=== PATIENT | male | born 1965 | race Caucasian/White ===

== ENCOUNTER → 2017-04-30 | Outpatient (CLI) | payer BC ==
[~2017-04-30] MED LIST: CEFU500T PO; TAMS-11 PO
== END | disposition home or self-care (01) ==
LOC: CFH 16:53
PROVIDERS: ATTEND Nurse Practitioner Family
DX: R06.00 Dyspnea, unspecified (principal); R05 Cough; Z87.891 Personal history of nicotine dependence
CPT/HCPCS: 71020

== ENCOUNTER → 2017-07-21 | Outpatient (CLI) | payer BC | END | disposition home or self-care (01) | LOC: CFH 15:47 | PROVIDERS: ATTEND Nurse Practitioner Family | DX: M79.631 Pain in right forearm (principal); Z98.890 Other specified postprocedural states ==

== ENCOUNTER → 2018-06-12 | Outpatient (CLI) | payer BC | END | disposition home or self-care (01) | LOC: CFH 14:53 | PROVIDERS: ATTEND Radiology Diagnostic Radiology | DX: R22.1 Localized swelling, mass and lump, neck (principal); M50.321 Other cervical disc degeneration at C4-C5 level; M50.322 Other cervical disc degeneration at C5-C6 level | CPT/HCPCS: 70360 ==

== ENCOUNTER 2020-05-03 01:52 | Inpatient (IN) | payer BC, OTHER ==
[~2020-05-03] VITALS: Ht 182.9 cm; Wt 103.0 kg
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
--- NOTE | 2020-05-03 01:55 | NUR ---
SECURITY AT BEDSIDE TO PUT PT IN 4 PT HARD RESTRAINTS
--- NOTE | 2020-05-03 02:00 | NUR ---
PT BELONGINGS (CELL PHONE AND GLASSES) PRESENT WITH PT UPON ARRIVAL, PLACED ON COUNTER
[2020-05-03] MEDS ORDERED: LORazepam 2 MG/ML, 1ML ONE ×3 (02:27→04:58)
[2020-05-03] MEDS ORDERED: LORazepam 2 MG/ML, 1ML IVPush ONE ×3 (02:30→05:00)
[2020-05-03] MEDS ORDERED: SODIUM CHLORIDE 0.9% 1,000ML IVBOLUS ONE ×2 (02:30→03:30)
--- NOTE | 2020-05-03 02:30 | NUR ---
PT STRAIGHT CATHED FOR URINE SAMPLE, PT MEDICATED PER MAR, PT IN FOUR POINT RESTRAINTS, NO INJURY NOTED, +ROM/CIRCULATION, NEEDS ATTENDED TO, WILL CONTINUE TO MONITOR
[2020-05-03 02:47] LABS: MEAN CORPUSCULAR HEMOGLOBIN 30.9 pg (27.5-34.5); MEAN CORPUSCULAR HGB CONC 33.8 g/dL (33.2-36.2); MEAN CORPUSCULAR VOLUME 91.3 fL (81-97); MEAN PLATELET VOLUME 7.8 fL (7.4-10.4); PLATELET COUNT 265 x10^3/uL (130-400); RED BLOOD COUNT 5.97 x10^6/uL (4.38-5.82); RED CELL DISTRIBUTION WIDTH 14.1 % (9.4-14.8)
[2020-05-03 02:57] LABS: ALANINE AMINOTRANSFERASE 49 U/L (12-78); ALBUMIN 4.1 g/dL (3.4-5.0); ANION GAP 16 mmol/L (5-15); CALCIUM 9.7 mg/dL (8.5-10.1); CHLORIDE 110 mmol/L (98-107); CREATININE 2.86 mg/dL (0.7-1.3)
[2020-05-03 03:00] LABS: ALKALINE PHOSPHATASE 93 U/L (45-117); BILIRUBIN,TOTAL 1.2 mg/dL (0.2-1.0); TOTAL PROTEIN 8.4 g/dL (6.4-8.2)
[2020-05-03] MEDS ORDERED: PLEASE ENTER ALLERGIES MC SCH (03:00)
[2020-05-03] MEDS ORDERED: ACETAMINOPHEN 325 MG TABLET PO ONE (03:00)
[2020-05-03 03:07] LABS: BASOPHILS # (AUTO) 0.01 x10^3/uL (0-0.1); BASOPHILS % (AUTO) 0 % (0-1); EOSINOPHILS # (AUTO) 0.07 x10^3/uL (0-0.4); EOSINOPHILS % (AUTO) 0 % (1-7); LYMPHOCYTES # (AUTO) 1.18 x10^3/uL (1-3.4); LYMPHOCYTES % (AUTO) 5 % (22-44); MD SCAN; MONOCYTES # (AUTO) 0.67 x10^3/uL (0.2-0.8); MONOCYTES % (AUTO) 3 % (2-9); NEUTROPHILS # (AUTO) 21.19 x10^3/uL (1.8-6.8); NEUTROPHILS % (AUTO) 92 % (42-75)
[2020-05-03 03:27] LABS: AMPHETAMINE SCREEN, URINE Positive (Negative); BARBITURATE SCREEN, URINE Negative (Negative); BENZODIAZEPINE SCREEN, URINE Negative (Negative); CANNABINOID SCREEN, URINE Negative (Negative); COCAINE SCREEN, URINE Positive (Negative); METHADONE SCREEN, URINE Negative (Negative); OPIATE SCREEN, URINE Negative (Negative)
[2020-05-03] MEDS ORDERED: CEFTRIAXONE PMX 1GM/50ML 50 ML ONE (04:12)
[2020-05-03] MEDS ORDERED: CEFTRIAXONE PMX 1GM/50ML 50 ML IV ONE (04:30)
[2020-05-03] MEDS ORDERED: SODIUM CHLORIDE 0.9% 1,000 ML IV SCH (04:35)
[2020-05-03 04:37] LABS: MICROSCOPIC INDICATED
--- NOTE | 2020-05-03 04:42 | NUR ---
PT AGITATION INCREASES AND PT YELLING OUT, ORDER FOR ATIVAN 1 MG IV
[2020-05-03] MEDS ORDERED: morphine SULFATE 10 MG/ML, 1ML IVPush PRN (05:00)
[2020-05-03] MEDS ORDERED: LORazepam 2 MG/ML, 1ML IVPush PRN ×2 (05:30→13:30)
--- NOTE | 2020-05-03 05:41 | NUR ---
PT CONTINUES TO FLAIL IN BED, CURRENTLY IN 4 POINT HARD RESTRAINTS, PT AGITATED, MOANING, AND ATTEMPTING TO GET OUT OF RESTRAINTS
--- NOTE | 2020-05-03 06:20 | NUR ---
PT BOTTOM DENTURES PLACED IN BAG WITH PATIENT LABEL
--- NOTE | 2020-05-03 06:28 | NUR ---
REPORT CALLED TO SARA WILLIAMSON TO ASSUME CARE UPON TRANSFER TO [facility]
--- NOTE | 2020-05-03 06:40 | NUR ---
SECURITY AND SITTER AT BEDSIDE TO ESCORT TRANSPORT TO UNIT AT THIS TIME
[2020-05-03 08:25] VITALS: BP 111/74
[2020-05-03] MEDS: SODIUM CHLORIDE 0.9% 1,000 ML IV SCH ×2 (08:30→16:30)
[2020-05-03] MEDS: SENNA/DOCUSATE TABLET PO SCH (08:37)
[2020-05-03 12:45] LABS: CHLORIDE,URINE RANDOM 73 mmol/L; POTASSIUM,URINE RANDOM 53 mmol/L; SODIUM,URINE RANDOM 75 mmol/L
[2020-05-03 14:18] VITALS: BP 115/74
[2020-05-03 15:17] LABS: ALANINE AMINOTRANSFERASE 163 U/L (12-78); ALBUMIN 3.2 g/dL (3.4-5.0); ANION GAP 8 mmol/L (5-15); CALCIUM 8.2 mg/dL (8.5-10.1); CHLORIDE 118 mmol/L (98-107); CREATININE 1.46 mg/dL (0.7-1.3)
[2020-05-03 15:19] LABS: BASOPHILS # (AUTO) 0.05 x10^3/uL (0-0.1); BASOPHILS % (AUTO) 0 % (0-1); EOSINOPHILS # (AUTO) 0.11 x10^3/uL (0-0.4); EOSINOPHILS % (AUTO) 1 % (1-7); LYMPHOCYTES # (AUTO) 1.79 x10^3/uL (1-3.4); LYMPHOCYTES % (AUTO) 12 % (22-44); MEAN CORPUSCULAR HEMOGLOBIN 30.9 pg (27.5-34.5); MEAN CORPUSCULAR HGB CONC 33.5 g/dL (33.2-36.2); MEAN CORPUSCULAR VOLUME 92.5 fL (81-97); MEAN PLATELET VOLUME 7.3 fL (7.4-10.4); MONOCYTES # (AUTO) 0.92 x10^3/uL (0.2-0.8); MONOCYTES % (AUTO) 6 % (2-9); NEUTROPHILS % (AUTO) 80 % (42-75); PLATELET COUNT 194 x10^3/uL (130-400); RED BLOOD COUNT 5.25 x10^6/uL (4.38-5.82)
[2020-05-03 15:20] LABS: MD NO
[2020-05-03 15:46] LABS: ALKALINE PHOSPHATASE 69 U/L (45-117); TOTAL PROTEIN 6.7 g/dL (6.4-8.2)
[2020-05-03 16:44] LABS: CREATINE KINASE, TOTAL 50620 U/L (39-308)
[2020-05-03] MEDS: SODIUM BICARBONATE 8.4% 150 MEQ in DEXTROSE 5% 1,000 ML IV SCH (18:30)
[2020-05-03] MEDS ORDERED: HALOPERIDOL 5 MG/ML IM PRN (18:30)
[2020-05-03] MEDS ORDERED: SODIUM ACETATE 150 MEQ in DEXTROSE 5% 1,000 ML IV SCH (18:30)
[2020-05-03] MEDS ORDERED: HALOPERIDOL 5 MG TABLET PO PRN (20:30)
[2020-05-03 21:33] VITALS: BP 73/59
[2020-05-04] MEDS: SODIUM BICARBONATE 8.4% 150 MEQ in DEXTROSE 5% 1,000 ML IV SCH ×3 (02:10→19:42)
[2020-05-04 03:06] VITALS: BP 99/57
[2020-05-04 05:16] LABS: ALBUMIN 2.8 g/dL (3.4-5.0); ANION GAP 5 mmol/L (5-15); CALCIUM 8.6 mg/dL (8.5-10.1); CHLORIDE 115 mmol/L (98-107)
[2020-05-04 05:29] LABS: BASOPHILS # (AUTO) 0.07 x10^3/uL (0-0.1); BASOPHILS % (AUTO) 1 % (0-1); EOSINOPHILS # (AUTO) 0.31 x10^3/uL (0-0.4); EOSINOPHILS % (AUTO) 3 % (1-7); LYMPHOCYTES # (AUTO) 2.29 x10^3/uL (1-3.4); LYMPHOCYTES % (AUTO) 20 % (22-44); MD NO; MEAN CORPUSCULAR HEMOGLOBIN 30.5 pg (27.5-34.5); MEAN CORPUSCULAR HGB CONC 32.8 g/dL (33.2-36.2); MEAN CORPUSCULAR VOLUME 92.9 fL (81-97); MEAN PLATELET VOLUME 7.4 fL (7.4-10.4); MONOCYTES # (AUTO) 0.47 x10^3/uL (0.2-0.8); MONOCYTES % (AUTO) 4 % (2-9); NEUTROPHILS # (AUTO) 8.11 x10^3/uL (1.8-6.8); NEUTROPHILS % (AUTO) 72 % (42-75); PLATELET COUNT 185 x10^3/uL (130-400); RED BLOOD COUNT 4.85 x10^6/uL (4.38-5.82)
[2020-05-04 05:43] LABS: ALANINE AMINOTRANSFERASE 279 U/L (12-78); ALKALINE PHOSPHATASE 64 U/L (45-117); BILIRUBIN,TOTAL 0.8 mg/dL (0.2-1.0); CREATININE 1.21 mg/dL (0.7-1.3); TOTAL PROTEIN 5.9 g/dL (6.4-8.2)
[2020-05-04 06:13] LABS: CREATINE KINASE, TOTAL 54168 U/L (39-308)
[2020-05-04] MEDS: SENNA/DOCUSATE TABLET PO SCH (08:25)
[2020-05-04 08:44] LABS: CLOSTRIDIUM DIFFICILE ANTIGEN NEGATIVE; CLOSTRIDIUM DIFFICILE TOXIN NEGATIVE (Negative)
[2020-05-04 10:57] VITALS: BP 108/69
[2020-05-04 14:22] LABS: ALANINE AMINOTRANSFERASE 354 U/L (12-78); ALBUMIN 2.9 g/dL (3.4-5.0); ANION GAP 6 mmol/L (5-15); CALCIUM 8.6 mg/dL (8.5-10.1); CHLORIDE 107 mmol/L (98-107); CREATININE 1.23 mg/dL (0.7-1.3)
[2020-05-04 14:32] VITALS: BP 112/61
[2020-05-04 14:57] LABS: ALKALINE PHOSPHATASE 68 U/L (45-117); BILIRUBIN,TOTAL 0.7 mg/dL (0.2-1.0); TOTAL PROTEIN 6.3 g/dL (6.4-8.2)
[2020-05-04 16:05] LABS: CREATINE KINASE, TOTAL 50976 U/L (39-308)
[2020-05-04 20:05] VITALS: BP 92/58
[2020-05-05] MEDS: SODIUM BICARBONATE 8.4% 150 MEQ in DEXTROSE 5% 1,000 ML IV SCH ×3 (02:44→18:32)
[2020-05-05 02:48] VITALS: BP 103/67
[2020-05-05 03:30] LABS: MICROSCOPIC AUTO
[2020-05-05 05:14] LABS: ALBUMIN 2.5 g/dL (3.4-5.0); ANION GAP 6 mmol/L (5-15); CALCIUM 8.1 mg/dL (8.5-10.1); CHLORIDE 105 mmol/L (98-107)
[2020-05-05 05:20] LABS: BASOPHILS # (AUTO) 0.05 x10^3/uL (0-0.1); BASOPHILS % (AUTO) 1 % (0-1); EOSINOPHILS # (AUTO) 0.22 x10^3/uL (0-0.4); EOSINOPHILS % (AUTO) 3 % (1-7); LYMPHOCYTES # (AUTO) 2.34 x10^3/uL (1-3.4); LYMPHOCYTES % (AUTO) 28 % (22-44); MD NO; MEAN CORPUSCULAR HEMOGLOBIN 30.5 pg (27.5-34.5); MEAN CORPUSCULAR HGB CONC 32.9 g/dL (33.2-36.2); MEAN CORPUSCULAR VOLUME 92.8 fL (81-97); MEAN PLATELET VOLUME 7.7 fL (7.4-10.4); MONOCYTES # (AUTO) 0.45 x10^3/uL (0.2-0.8); MONOCYTES % (AUTO) 5 % (2-9); NEUTROPHILS # (AUTO) 5.23 x10^3/uL (1.8-6.8); NEUTROPHILS % (AUTO) 63 % (42-75); PLATELET COUNT 173 x10^3/uL (130-400); RED BLOOD COUNT 4.55 x10^6/uL (4.38-5.82); RED CELL DISTRIBUTION WIDTH 13.9 % (9.4-14.8)
[2020-05-05 05:45] LABS: ALANINE AMINOTRANSFERASE 337 U/L (12-78); ALKALINE PHOSPHATASE 56 U/L (45-117); BILIRUBIN,TOTAL 0.7 mg/dL (0.2-1.0); CREATININE 1.01 mg/dL (0.7-1.3); TOTAL PROTEIN 5.4 g/dL (6.4-8.2)
[2020-05-05 06:50] LABS: CREATINE KINASE, TOTAL 33912 U/L (39-308)
[2020-05-05] MEDS: SENNA/DOCUSATE TABLET PO SCH (07:55)
[2020-05-05] MEDS: POTASSIUM CHLORIDE 20 MEQ TAB.ER.PRT PO SCH ×2 (07:55→17:23)
[2020-05-05 08:34] VITALS: BP 103/72
[2020-05-05] MEDS ORDERED: ACETAMINOPHEN 500 MG TABLET PO PRN (11:00)
[2020-05-05] MEDS ORDERED: ONDANSETRON 2MG/ML, 2ML IVPush PRN (11:00)
[2020-05-05] MEDS ORDERED: ONDANSETRON 4 MG TABLET PO PRN (11:00)
[2020-05-05 13:10] VITALS: BP 112/73
[2020-05-05 14:52] LABS: BASOPHILS # (AUTO) 0.04 x10^3/uL (0-0.1); BASOPHILS % (AUTO) 1 % (0-1); EOSINOPHILS % (AUTO) 3 % (1-7); LYMPHOCYTES # (AUTO) 2.02 x10^3/uL (1-3.4); LYMPHOCYTES % (AUTO) 27 % (22-44); MD NO; MEAN CORPUSCULAR HGB CONC 33.5 g/dL (33.2-36.2); MEAN CORPUSCULAR VOLUME 92.4 fL (81-97); MEAN PLATELET VOLUME 8.1 fL (7.4-10.4); MONOCYTES # (AUTO) 0.32 x10^3/uL (0.2-0.8); MONOCYTES % (AUTO) 4 % (2-9); NEUTROPHILS # (AUTO) 4.97 x10^3/uL (1.8-6.8); NEUTROPHILS % (AUTO) 66 % (42-75); PLATELET COUNT 201 x10^3/uL (130-400); RED BLOOD COUNT 4.89 x10^6/uL (4.38-5.82); RED CELL DISTRIBUTION WIDTH 13.7 % (9.4-14.8)
[2020-05-05 15:00] LABS: ALANINE AMINOTRANSFERASE 412 U/L (12-78); ALBUMIN 2.9 g/dL (3.4-5.0); ANION GAP 5 mmol/L (5-15); CALCIUM 8.8 mg/dL (8.5-10.1); CHLORIDE 105 mmol/L (98-107); CREATININE 1.11 mg/dL (0.7-1.3)
[2020-05-05 15:26] LABS: ALKALINE PHOSPHATASE 64 U/L (45-117); BILIRUBIN,TOTAL 0.6 mg/dL (0.2-1.0); TOTAL PROTEIN 6.4 g/dL (6.4-8.2)
[2020-05-05 16:53] LABS: CREATINE KINASE, TOTAL 30991 U/L (39-308)
[2020-05-05 19:55] VITALS: BP_SYST 117; BP_SYST 92; BP_DIAS 62; BP_DIAS 78
[2020-05-06 01:17] VITALS: BP 113/71
[2020-05-06] MEDS: SODIUM BICARBONATE 8.4% 150 MEQ in DEXTROSE 5% 1,000 ML IV SCH ×3 (02:38→18:03)
[2020-05-06 05:05] LABS: BASOPHILS # (AUTO) 0.07 x10^3/uL (0-0.1); BASOPHILS % (AUTO) 1 % (0-1); EOSINOPHILS # (AUTO) 0.37 x10^3/uL (0-0.4); EOSINOPHILS % (AUTO) 5 % (1-7); LYMPHOCYTES # (AUTO) 2.67 x10^3/uL (1-3.4); LYMPHOCYTES % (AUTO) 34 % (22-44); MD NO; MEAN CORPUSCULAR HEMOGLOBIN 30.3 pg (27.5-34.5); MEAN CORPUSCULAR HGB CONC 32.3 g/dL (33.2-36.2); MEAN CORPUSCULAR VOLUME 93.8 fL (81-97); MONOCYTES # (AUTO) 0.34 x10^3/uL (0.2-0.8); MONOCYTES % (AUTO) 4 % (2-9); NEUTROPHILS # (AUTO) 4.49 x10^3/uL (1.8-6.8); NEUTROPHILS % (AUTO) 57 % (42-75); PLATELET COUNT 191 x10^3/uL (130-400); RED BLOOD COUNT 4.51 x10^6/uL (4.38-5.82); RED CELL DISTRIBUTION WIDTH 13.6 % (9.4-14.8)
[2020-05-06 05:16] LABS: ALBUMIN 2.5 g/dL (3.4-5.0); ANION GAP 4 mmol/L (5-15); CALCIUM 9.1 mg/dL (8.5-10.1); CHLORIDE 108 mmol/L (98-107)
[2020-05-06 05:43] LABS: ALANINE AMINOTRANSFERASE 346 U/L (12-78); ALKALINE PHOSPHATASE 57 U/L (45-117); BILIRUBIN,TOTAL 0.5 mg/dL (0.2-1.0); CREATININE 0.97 mg/dL (0.7-1.3); TOTAL PROTEIN 5.7 g/dL (6.4-8.2)
[2020-05-06 06:52] LABS: CREATINE KINASE, TOTAL 15549 U/L (39-308)
[2020-05-06 08:00] VITALS: BP 109/58
[2020-05-06] MEDS: POTASSIUM CHLORIDE 20 MEQ TAB.ER.PRT PO SCH ×2 (08:07→17:14)
[2020-05-06] MEDS: SENNA/DOCUSATE TABLET PO SCH (08:07)
[2020-05-06 14:00] VITALS: BP 108/56
[2020-05-06 15:14] LABS: ALANINE AMINOTRANSFERASE 358 U/L (12-78); ALBUMIN 2.9 g/dL (3.4-5.0); ANION GAP 3 mmol/L (5-15); CALCIUM 9.5 mg/dL (8.5-10.1); CHLORIDE 109 mmol/L (98-107); CREATININE 1.02 mg/dL (0.7-1.3)
[2020-05-06 15:40] LABS: ALKALINE PHOSPHATASE 63 U/L (45-117); BILIRUBIN,TOTAL 0.4 mg/dL (0.2-1.0); CREATINE KINASE, TOTAL 9894 U/L (39-308); TOTAL PROTEIN 6.1 g/dL (6.4-8.2)
[2020-05-06 21:25] VITALS: BP 113/47
[2020-05-07 03:13] VITALS: BP 107/62
[2020-05-07] MEDS: SODIUM BICARBONATE 8.4% 150 MEQ in DEXTROSE 5% 1,000 ML IV SCH (03:43)
[2020-05-07 06:50] LABS: BASOPHILS # (AUTO) 0.05 x10^3/uL (0-0.1); BASOPHILS % (AUTO) 1 % (0-1); EOSINOPHILS # (AUTO) 0.42 x10^3/uL (0-0.4); EOSINOPHILS % (AUTO) 5 % (1-7); LYMPHOCYTES # (AUTO) 2.16 x10^3/uL (1-3.4); LYMPHOCYTES % (AUTO) 24 % (22-44); MD NO; MEAN CORPUSCULAR HEMOGLOBIN 30.8 pg (27.5-34.5); MEAN CORPUSCULAR HGB CONC 33.6 g/dL (33.2-36.2); MEAN CORPUSCULAR VOLUME 91.7 fL (81-97); MEAN PLATELET VOLUME 7.6 fL (7.4-10.4); MONOCYTES # (AUTO) 0.34 x10^3/uL (0.2-0.8); MONOCYTES % (AUTO) 4 % (2-9); NEUTROPHILS % (AUTO) 67 % (42-75); PLATELET COUNT 192 x10^3/uL (130-400); RED BLOOD COUNT 4.72 x10^6/uL (4.38-5.82); RED CELL DISTRIBUTION WIDTH 13.1 % (9.4-14.8)
[2020-05-07 07:03] LABS: ALBUMIN 2.7 g/dL (3.4-5.0); ANION GAP 6 mmol/L (5-15); CALCIUM 9.4 mg/dL (8.5-10.1); CHLORIDE 112 mmol/L (98-107)
[2020-05-07 07:18] LABS: ALANINE AMINOTRANSFERASE 294 U/L (12-78); ALKALINE PHOSPHATASE 60 U/L (45-117); BILIRUBIN,TOTAL 0.3 mg/dL (0.2-1.0); CREATINE KINASE, TOTAL 4076 U/L (39-308); CREATININE 0.97 mg/dL (0.7-1.3); TOTAL PROTEIN 5.7 g/dL (6.4-8.2)
[2020-05-07 07:58] VITALS: BP 125/76
[2020-05-07] MEDS: SENNA/DOCUSATE TABLET PO SCH (09:00)
== END 2020-05-07 13:05 | disposition home or self-care (01) | DRG 917 ==
LOC: ED 04:12 → EDIP 05:39 → MERGE 05:39 → 5SO 06:50 → DCLOUNGE 05-07 12:27 → UNDODISIN 05-07 12:34
PROVIDERS: ADMIT Family Medicine; ATTEND Family Medicine
PROC: 0T9B70Z Drainage of Bladder with Drainage Device, Via Natural or Artificial Opening (ICD-10-PCS; principal; 2020-05-03)
DX: T43.621A Poisoning by amphetamines, accidental (unintentional), initial encounter (principal); G92 Toxic encephalopathy; F23 Brief psychotic disorder; M62.82 Rhabdomyolysis; N17.9 Acute kidney failure, unspecified; R65.10 Systemic inflammatory response syndrome (SIRS) of non-infectious origin without acute organ dysfunction; E87.2 Acidosis; D72.829 Elevated white blood cell count, unspecified; D75.1 Secondary polycythemia; E78.5 Hyperlipidemia, unspecified; E86.0 Dehydration; F14.10 Cocaine abuse, uncomplicated; F15.10 Other stimulant abuse, uncomplicated; F41.9 Anxiety disorder, unspecified; Z63.8 Other specified problems related to primary support group; Z78.1 Physical restraint status; Y92.89 Other specified places as the place of occurrence of the external cause
CPT/HCPCS: 36415; 71045; 80053; 80307; 81001; 82436; 82550; 83605; 84133; 84145; 84300; 84484; 85025; 87040; 87046; 87324; 87427; 93005; 99291; G0378; J0696; J7070; J2060; J7030